=== PATIENT | female | born 1975 | race Caucasian/White ===

== ENCOUNTER 2021-05-13 12:33 | Emergency (ER) | payer OTHER, SELFPAY ==
[2021-05-13 12:47] VITALS: BP 110/62; PULSE 80; RESP 16; TEMP 36.4; O2SAT 98; BMI 21.1
[2021-05-13 13:23] LABS: Glucose Point of Care 107 mg/dL (70-110)
[2021-05-13 13:33] VITALS: BP 119/67; PULSE 89; RESP 16; O2SAT 98
[2021-05-13 14:23] VITALS: BP 107/52; PULSE 71; RESP 16; O2SAT 100
--- NOTE | 2021-05-13 16:16 | ED_ITS ---
HPI - General Adult General: Chief complaint: Alcohol Stated complaint: DRUNK, NONRESPONSIVE TO STEMULI FROM MOM Time Seen by Provider: 05/13/21 13:04 History of Present Illness: HPI narrative: Patient is a 45-year-old female with a history of alcohol dependence presenting to the emergency room with concerns for occult acute alcohol intoxication. Patient is somnolent unable to respond to question. Patient was brought into the emergency room by parents who tells me that patient had alcohol earlier today. Onset: earlier today Duration: ongoing Location:home Severity:mild Review of Systems Narrative: Constitutional: No fever, no chills. HEENT: No vision changes CV: no chest pain, no palpitations PULM: no cough, no dyspnea. GI: No abdominal pain, no N/V/D. : No dysuria MSKEL: No muscle pain SKIN: No new rashes, no lesions. NEURO: No headache, no focal weakness. +ams HEME: No visible bruises Physical Exam Narrative: EXAM NARRATIVE: Head: Atraumatic Eyes: PERRL, conjunctiva without injection ENT: Mucous membrane moist NECK: Supple, ROM intact LUNGS: LCTAB, no crackles/rhonchi CV: RRR ABDOMEN: Soft, nontender in all quadrants EXTREMITY: Normal ROM SKIN: No rash or erythema NEURO: GCS 14 somnolent but sleeping, +slurring speech Course Vital Signs: Vital signs: Vital Signs Temperature 97.6 F 05/13/21 12:47 Pulse Rate 71 05/13/21 14:23 Respiratory Rate 16 05/13/21 14:23 Blood Pressure 107/52 05/13/21 14:23 Pulse Oximetry 100 05/13/21 14:23 MDM - General Adult MDM Narrative: Medical decision making narrative: 45-year-old female with a history of alcohol dependence presenting to emergency room after alcohol intoxication. On arrival, patient was somnolent, resting history of unable to assess given status. Patient has become increasingly more awake now. He is able to answer question. Patient denies any SI/HI, active hallucination or other complaints. Disposition: Discharge. Patient counseled regarding diagnostic impression, treatment plan. Patient given ED strict return precautions to return for continuation, worsening, or development of new symptoms. Instructed to f/u w/ PCP regarding symptoms today. Patient verbalized understanding. Lab Data: Labs: Lab Results 05/13/21 05/13/21 05/13/21 13:19 16:35 16:35 WBC 6.5 10^3/uL 10^3/ uL (4.0-10.0) RBC 4.97 10^6/uL 10^6 /uL (4.1-5.3) Hgb 14.4 g/dL g/dL (11.5-15.3) Hct 43.5 % % (37.0-47.0) MCV 87.5 fl fl (81-99) MCH 29.0 pg pg (28.0-34.0) MCHC 33.1 g/dL g/dL (30.0-36.0) RDW 11.9 % L % (12.1-15.1) Plt Count 225 10^3/cmm 10^3 /cmm (130-400) MPV 8.5 fL fL (7.4-10.4) Neut % (Auto) 72.9 % % Lymph % (Auto) 21.9 % % [place] % (Auto) 4.1 % % Eos % (Auto) 0.0 % % Baso % (Auto) 0.3 % % Neut # (Auto) 4.75 10^3/uL 10^3 /uL (1.8-7.7) Lymph # (Auto) 1.4 10^3/uL 10^3/ uL (0.8-4.8) [place] # (Auto) 0.3 10^3/uL 10^3/ uL (0.2-0.9) Eos # (Auto) 0.0 10^3/uL 10^3/ uL (0.0-0.8) Baso # (Auto) 0.0 10^3/uL 10^3/ uL (0.0-0.1) Nucleated RBC % (a uto) 0 % % Nucleated RBCs # 0.0 /100WBC /100W BC Sodium 140 mmol/L mmol/L (136-145) Potassium 3.9 mmol/L mmol/L (3.5-5.1) Chloride 103 mmol/L mmol/L (98-107) Carbon Dioxide 24 mmol/L mmol/L (22-29) Anion Gap 16.9 (5-19) BUN 10 mg/dL mg/dL (6-20) Creatinine 1.0 mg/dL H mg/dL (0.5-0.9) GFR Calculation 59.4 mL/min L mL/ min (90-130) Glucose 129 mg/dL H mg/dL (65-115) POC Glucose 107 mg/dL mg/dL (70-110) Calculated Osmolal ity 291 mOsm/kg mOsm/ kg (285-295) Calcium 8.2 mg/dL L mg/dL (8.5-10.5) Ser , Avis i-Qnt 1.05 mIU/mL mIU/m L Discharge Plan Discharge Patient Disposition: Home Clinical Impression: Alcohol intoxication Condition: Stable Discharge Orders: Discharge ED (Routine); Ordered 05/13/21 Ordered By: Maria Teresa Bellamy Discharge Diet: Advance as tolerated Discharge Activity: Resume usual activity Patient Instructions: Alcohol Dependence (ED) Activity Restrictions/Additional Instructions: Please come back to the emergency room if she has any new or concerning complaints, other issues, or any other problems. Coding Level of Care Code ED Launch Engineer for Alison Mark
[2021-05-13 16:43] LABS: Basophils % 0.3 %; Hematocrit 43.5 % (37.0-47.0); Hemoglobin 14.4 g/dL (11.5-15.3); Lymphocytes # 1.4 10^3/uL (0.8-4.8); Lymphocytes % 21.9 %; Mean Corpuscular HGB Conc 33.1 g/dL (30.0-36.0); Mean Corpuscular Volume 87.5 fl (81-99); Mean Platelet Volume 8.5 fL (7.4-10.4); Monocytes # 0.3 10^3/uL (0.2-0.9); Monocytes % 4.1 %; Neutrophils # 4.75 10^3/uL (1.8-7.7); Neutrophils % 72.9 %; Nucleated Red Blood Cells % 0 %; Platelet Count 225 10^3/cmm (130-400); Red Blood Count 4.97 10^6/uL (4.1-5.3); Red Cell Distribution Width 11.9 % (12.1-15.1); White Blood Count 6.5 10^3/uL (4.0-10.0)
[2021-05-13 17:05] LABS: HCG Quantitative 1.05 mIU/mL
[2021-05-13 17:18] LABS: Anion Gap 16.9 (5-19); Blood Urea Nitrogen 10 mg/dL (6-20); Calcium 8.2 mg/dL (8.5-10.5); Carbon Dioxide 24 mmol/L (22-29); Chloride 103 mmol/L (98-107); Creatinine Clr Calc Pharmacy 67.4714; Glomerular Filtration Rate 59.4 mL/min (90-130); Glucose 129 mg/dL (65-115); Osmolality Calculated 291 mOsm/kg (285-295); Potassium 3.9 mmol/L (3.5-5.1); Sodium 140 mmol/L (136-145)
== END 2021-05-13 16:51 | disposition home or self-care (01) ==
PROVIDERS: Emergency Provider Emergency Medicine
DX: F10.129 Alcohol abuse with intoxication, unspecified (principal)
CPT/HCPCS: 36416; 80048; 82962; 84702; 85025; 99283

== ENCOUNTER 2021-05-15 15:39 | Emergency (ER) | payer OTHER, SELFPAY ==
[2021-05-15 16:01] VITALS: BP 130/81; PULSE 69; RESP 16; TEMP 36.6; O2SAT 99; BMI 22.6
[2021-05-15] MEDS: ondansetron 2 mg/ML SDV 2 mL 4 MG IVP (16:39)
[2021-05-15] MEDS: sodium chloride 0.9% 1,000 ML 999 ML IV ×2 (16:41→16:42)
[2021-05-15 16:53] LABS: Basophils % 0.5 %; Eosinophils % 0.3 %; Hematocrit 42.8 % (37.0-47.0); Hemoglobin 14.4 g/dL (11.5-15.3); Lymphocytes # 1.4 10^3/uL (0.8-4.8); Lymphocytes % 24.1 %; Mean Corpuscular HGB Conc 33.6 g/dL (30.0-36.0); Mean Corpuscular Hemoglobin 28.9 pg (28.0-34.0); Mean Corpuscular Volume 85.8 fl (81-99); Mean Platelet Volume 8.4 fL (7.4-10.4); Monocytes # 0.7 10^3/uL (0.2-0.9); Monocytes % 11.9 %; Neutrophils # 3.68 10^3/uL (1.8-7.7); Neutrophils % 62.7 %; Nucleated Red Blood Cells % 0 %; Platelet Count 235 10^3/cmm (130-400); Red Blood Count 4.99 10^6/uL (4.1-5.3); Red Cell Distribution Width 11.9 % (12.1-15.1); White Blood Count 5.9 10^3/uL (4.0-10.0)
[2021-05-15] MEDS: LORazepam 2 mg/mL INJ 1 mL IVP (17:11)
[2021-05-15 17:14] VITALS: PULSE 67; RESP 15; O2SAT 99
[2021-05-15 17:32] LABS: Anion Gap 19.1 (5-19); Blood Urea Nitrogen 9 mg/dL (6-20); Calcium 9.3 mg/dL (8.5-10.5); Carbon Dioxide 25 mmol/L (22-29); Chloride 97 mmol/L (98-107); Glomerular Filtration Rate 59.4 mL/min (90-130); Glucose 99 mg/dL (65-115); Osmolality Calculated 285 mOsm/kg (285-295); Potassium 3.1 mmol/L (3.5-5.1); Sodium 138 mmol/L (136-145)
[2021-05-15 17:33] LABS: Alcohol Level < 10 mg/dL (0-10)
--- NOTE | 2021-05-15 18:00 | ED_ITS ---
HPI - General Adult General: Chief complaint: Nausea/Vomiting/Diarrhea Stated complaint: Drank Isopropyl Alcohol Time Seen by Provider: 05/15/21 16:12 History of Present Illness: HPI narrative: Patient is a 45-year-old female who was recently evaluated in the emergency room 2 days prior for concerns of alcohol intoxication presenting for reassesmsent at the request of patient's parents. Patient's parents are concerned that the patient may have drank rubber alcohol yesterday morning at 9am. Patient says that she has not had any drinks since drinking the rubber alcohol. Patient denies drinking any moonshines or antifreeze. Patient's parents performed a breathalyzer test on the patient which came back positive. Patient's parents would like to have a serum alcohol level provided. Patient has no focal complaints other than jitteriness. Denies any recent drinks prior previous visit. No other focal complaints at this time. No divulges that she drink 1 pint of rubbing alcohol yesterday morning. AAOx3, GCS 15. Patient denies any SI/HI, or active hallucination. Onset:2 days ago Duration:2 days Location:home Severity:moderate Review of Systems Narrative: Constitutional: No fever, no chills. HEENT: No vision changes CV: No chest pain, no palpitations PULM: no cough, no dyspnea. GI: No abdominal pain, no N/V/D. : No dysuria MSKEL: No muscle pain SKIN: No new rashes, no lesions. NEURO: No headache, no focal weakness. HEME: No visible bruises PSYCH: Normal mood Physical Exam Narrative: EXAM NARRATIVE: Head: Atraumatic Eyes: PERRL, conjunctiva without injection ENT: Mucous membrane moist NECK: Supple, ROM intact LUNGS: LCTAB, no crackles/rhonchi CV: RRR ABDOMEN: Soft, nontender in all quadrants EXTREMITY: Normal ROM SKIN: No rash or erythema NEURO: Awake and alert, no focal motor deficits PSYCH: Normal mood and affect Course Vital Signs: Vital signs: Vital Signs Temperature 97.9 F 05/15/21 16:01 Pulse Rate 67 05/15/21 17:14 Respiratory Rate 15 05/15/21 17:14 Blood Pressure 130/81 05/15/21 16:01 Pulse Oximetry 99 05/15/21 17:14 MDM - General Adult MDM Narrative: Medical decision making narrative: 45-year-old female presenting to the emergency room for concerns of her alcohol ingestion yesterday morning. On exam, patient is hemodynamically stable, patient has mild jittery noticed in the hands suggestive of mild withdrawal. Patient received Ativan IVF in the emergency room with symptomatic improvement. Alcohol level within normal limit as requested by parents. Patient stable for discharge Disposition: Discharge. Patient counseled regarding diagnostic impression, treatment plan. Patient given ED strict return precautions to return for continuation, worsening, or development of new symptoms. Instructed to f/u w/ PCP regarding symptoms today. Patient verbalized understanding. Lab Data: Labs: Lab Results 05/15/21 05/15/21 05/15/21 16:45 16:45 16:45 WBC 5.9 10^3/uL 10^3/ uL (4.0-10.0) RBC 4.99 10^6/uL 10^6 /uL (4.1-5.3) Hgb 14.4 g/dL g/dL (11.5-15.3) Hct 42.8 % % (37.0-47.0) MCV 85.8 fl fl (81-99) MCH 28.9 pg pg (28.0-34.0) MCHC 33.6 g/dL g/dL (30.0-36.0) RDW 11.9 % L % (12.1-15.1) Plt Count 235 10^3/cmm 10^3 /cmm (130-400) MPV 8.4 fL fL (7.4-10.4) Neut % (Auto) 62.7 % % Lymph % (Auto) 24.1 % % [place] % (Auto) 11.9 % % Eos % (Auto) 0.3 % % Baso % (Auto) 0.5 % % Neut # (Auto) 3.68 10^3/uL 10^3 /uL (1.8-7.7) Lymph # (Auto) 1.4 10^3/uL 10^3/ uL (0.8-4.8) [place] # (Auto) 0.7 10^3/uL 10^3/ uL (0.2-0.9) Eos # (Auto) 0.0 10^3/uL 10^3/ uL (0.0-0.8) Baso # (Auto) 0.0 10^3/uL 10^3/ uL (0.0-0.1) Nucleated RBC % (a uto) 0 % % Nucleated RBCs # 0.0 /100WBC /100W BC Sodium 138 mmol/L mmol/L (136-145) Potassium 3.1 mmol/L L mmol /L (3.5-5.1) Chloride 97 mmol/L L mmol/ L (98-107) Carbon Dioxide 25 mmol/L mmol/L (22-29) Anion Gap 19.1 H (5-19) BUN 9 mg/dL mg/dL (6-20) Creatinine 1.0 mg/dL H mg/dL (0.5-0.9) GFR Calculation 59.4 mL/min L mL/ min (90-130) Glucose 99 mg/dL mg/dL (65-115) Serum Osmolality 310 mOsm/kg H mOs m/kg (278-305) Calculated Osmolal ity 285 mOsm/kg mOsm/ kg (285-295) Calcium 9.3 mg/dL mg/dL (8.5-10.5) Ethyl Alcohol 05/15/21 16:45 WBC RBC Hgb Hct MCV MCH MCHC RDW Plt Count MPV Neut % (Auto) Lymph % (Auto) [place] % (Auto) Eos % (Auto) Baso % (Auto) Neut # (Auto) Lymph # (Auto) [place] # (Auto) Eos # (Auto) Baso # (Auto) Nucleated RBC % (a uto) Nucleated RBCs # Sodium Potassium Chloride Carbon Dioxide Anion Gap BUN Creatinine GFR Calculation Glucose Serum Osmolality Calculated Osmolal ity Calcium Ethyl Alcohol < 10 mg/dL mg/dL (0-10) Discharge Plan Discharge Patient Disposition: Home Clinical Impression: Alcohol dependence, General medical exam Condition: Stable Discharge Orders: Discharge ED (Routine); Ordered 05/15/21 Ordered By: Maria Teresa Bellamy Discharge Diet: Advance as tolerated Patient Instructions: Alcohol Use Disorder (ED), Opioid Safety Coding Level of Care Code ED Superintendent Building for Alison Mark
[2021-05-19 15:28] LABS: Osmolality Serum 310 mOsm/kg (278-305)
== END 2021-05-15 18:11 | disposition home or self-care (01) ==
PROVIDERS: Emergency Provider Emergency Medicine
DX: F10.20 Alcohol dependence, uncomplicated (principal); Z00.00 Encounter for general adult medical examination without abnormal findings
CPT/HCPCS: 80048; 80307; 83930; 85025; 96361; 96374; 96375; 99283; J2060; J2405; J7030